=== PATIENT | female | born 1980 | race Caucasian/White ===

== ENCOUNTER 2018-07-17 12:55 | Emergency (ER) | payer OTHER ==
[~2018-07-17] VITALS: Ht 167.6 cm; Wt 77.0 kg
[2018-07-17] MEDS ORDERED: LYRICA 50 MG50 MG PO (13:21)
[2018-07-17] MEDS ORDERED: METFORMIN HCL500 MG PO (13:21)
[2018-07-17] MEDS ORDERED: PROPRANOLOL 20M20 MG PO (13:21)
[2018-07-17] MEDS ORDERED: VITAMIN B COMP1 EACH PO (13:21)
[2018-07-17 14:32] VITALS: BP 108/72
== END 2018-07-17 14:32 | disposition home or self-care (01) ==
LOC: ER 12:55
DX: M79.7 Fibromyalgia (principal); G89.29 Other chronic pain; I10 Essential (primary) hypertension; Z90.49 Acquired absence of other specified parts of digestive tract; F17.210 Nicotine dependence, cigarettes, uncomplicated

== ENCOUNTER 2018-07-21 11:38 | Emergency (ER) | payer OTHER ==
[~2018-07-21 11:38] MED LIST: LYRICA 50 MG50 MG PO; METFORMIN HCL500 MG PO; PROPRANOLOL 20M20 MG PO; VITAMIN B COMP1 EACH PO
== END 2018-07-21 12:50 | disposition left against medical advice (07) ==
LOC: ER 11:38
DX: Z53.21 Procedure and treatment not carried out due to patient leaving prior to being seen by health care provider (principal)

== ENCOUNTER 2021-03-28 13:19 | Emergency (ER) | payer OTHER ==
[~2021-03-28] VITALS: Ht 167.6 cm; Wt 83.5 kg
[2021-03-28 13:23] VITALS: BP 163/90
--- NOTE | 2021-03-29 07:11 | EKG ---
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
== END 2021-03-28 14:55 | disposition home or self-care (01) ==
LOC: ER 13:19
DX: G45.8 Other transient cerebral ischemic attacks and related syndromes (principal); M79.7 Fibromyalgia; I10 Essential (primary) hypertension; F17.210 Nicotine dependence, cigarettes, uncomplicated; F12.90 Cannabis use, unspecified, uncomplicated; Z90.49 Acquired absence of other specified parts of digestive tract; Z79.84 Long term (current) use of oral hypoglycemic drugs; Z79.899 Other long term (current) drug therapy